=== PATIENT | female | born 1990 | race Caucasian/White ===

== ENCOUNTER 2017-11-01 11:14 | Emergency (ER) | payer OTHER ==
[~2017-11-01] VITALS: Ht 134.6 cm; Wt 38.6 kg
[2017-11-01 13:25] VITALS: BP 103/69
== END 2017-11-01 13:25 | disposition home or self-care (01) ==
LOC: ED 11:14
DX: R21 Rash and other nonspecific skin eruption (principal); Z88.5 Allergy status to narcotic agent; Z88.6 Allergy status to analgesic agent
CPT/HCPCS: J7512; Q0163